=== PATIENT | male | born 1930 | race Caucasian/White ===

== ENCOUNTER 2018-06-07 21:42 | Inpatient (IN) ==
--- NOTE | 2018-06-07 23:28 | ED ---
HPI General Chief Complaint: Neuro Symptoms/Deficit Stated Complaint: Headache Time Seen by Provider: 06/07/18 22:58 Source: patient Mode of arrival: EMS Limitations: no limitations History of Present Illness HPI Narrative: 87-year-old male complains of left arm weakness. Patient states that he was sitting at home this evening. Patient states that he got up and went to the bathroom and started having mild dizziness and nausea. Patient was sitting down after the bathroom and started having transient left arm tingling and weakness. Patient states that the symptoms lasted about a minute and resolved completely and then it happened again second time and resolved completely after 1 minute. Patient denies any numbness tingling or weakness sensation left arm now. Patient states that he has mild aching headache and occasionally burning sensation on the ice at the same time. Patient denies any visual change. Patient denies any facial weakness and numbness. Patient denies any neck pain. Patient denies any chest pain or shortness of breath. Patient denies abdominal pain. Patient denies any focal weakness or numbness of the extremity otherwise been a transient tingling and weakness of the left arm. Patient was been seen by Dr. Wilburn, neurologist, for stability problem and vestibular problem in the past. Patient has history of hypertension, hyperlipidemia. Patient denies history of diabetes. Patient denies history of TIA or CVA. Patient is non-smoker. Patient has history of bleeding ulcer in the past. Patient on aspirin 81 mg daily. Onset (ago): hour(s) Location: left arm History of same: No Severity: mild Quality: weak and tingling Relieving factors: none Exacerbating factors: none Context: sudden onset On Anticoagulants: Yes Associated symptoms: denies other symptoms Treatments Prior to Arrival: none Related Data Allergies Allergy/AdvReac Type Severity Reaction Status Date / Time No Known Allergies Allergy Mild Uncoded 12/13/06 12:01 Review of Systems Except as stated in HPI: all other systems reviewed are negative [facility] Social History Social History Second Hand Smoke Exposure: No Smoking Status: Never smoker How Often Do You Have a Drink Containing Alcohol: 2 to 4 times a month Recent Travel in [facility] within the Last 8 Weeks: No Recent Out of Country Travel within the Last 8 Weeks: No Immunization History Tetanus Immunization: Unsure Hx Influenza Vaccine This Season: No Exam Narrative Exam Narrative: GENERAL: Well-nourished, well-developed patient. SKIN: Focused skin assessment warm/dry. HEAD: Normocephalic. EYES: No scleral icterus. No injection or drainage. Pupils 1 mm equal reactive. NECK: Supple, trachea midline. No JVD or lymphadenopathy. CARDIOVASCULAR: Regular rate and rhythm without murmurs, gallops, or rubs. RESPIRATORY: Breath sounds equal bilaterally. No accessory muscle use. GASTROINTESTINAL: Abdomen soft, non-tender, nondistended. MUSCULOSKELETAL: No cyanosis, or edema. BACK: Nontender without obvious deformity. No CVA tenderness. Neurologic exam: Patient is awake and alert oriented 3. Patient moves all extremity well. No obvious focal neurological deficit. Course Initial Documented Vital Signs Temperature 98.2 F 06/07/18 22:51 Pulse Rate 78 06/07/18 22:51 Respiratory Rate 18 06/07/18 22:51 Blood Pressure 178/94 H 06/07/18 22:51 Pulse Oximetry 96 06/07/18 22:51 Last Documented Vital Signs Temperature 98.2 F 06/07/18 22:51 Pulse Rate 63 06/08/18 00:37 Respiratory Rate 16 06/08/18 00:37 Blood Pressure 160/81 H 06/08/18 00:37 Pulse Oximetry 97 06/08/18 00:37 Medical Decision Making MDM Narrative Medical decision making narrative: 87-year-old male with transient tingling sensation and weakness of the left arm. Lab Data Result diagrams: 06/07/18 23:25 06/07/18 23:25 Lab Results 06/07/18 06/07/18 06/07/18 Range/Units 23:25 23:25 23:25 WBC 4.3 (4.0-11.0) th/mm3 RBC 4.21 L (4.50-5.90) mil/mm3 Hgb 13.5 (13.0-17.0) gm/dL Hct 39.5 (39.0-51.0) % MCV 93.9 (80.0-100.0) fL MCH 32.0 (27.0-34.0) pg MCHC 34.1 (32.0-36.0) % RDW 12.5 (11.6-17.2) % Plt Count 302 (150-450) th/mm3 MPV 7.6 (7.0-11.0) fL Neut % (Auto) 49.8 (16.0-70.0) % Lymph % (Auto) 20.8 (9.0-44.0) % [place] % (Auto) 17.5 H (0.0-8.0) % Eos % (Auto) 10.5 H (0.0-4.0) % Baso % (Auto) 1.4 (0.0-2.0) % Neut # (Auto) 2.1 (1.8-7.7) th/mm3 Lymph # (Auto) 0.9 L (1.0-4.8) th/mm3 [place] # (Auto) 0.7 (0.0-0.9) th/mm3 Eos # (Auto) 0.4 (0.0-0.4) th/mm3 Baso # (Auto) 0.1 (0.0-0.2) th/mm3 WBC Differential . Differential Comment Auto diff final PT 11.1 (9.8-11.6) sec INR 1.1 Ratio APTT 26.0 (24.3-30.1) sec Sodium 138 (136-145) meq/L Potassium 3.7 (3.5-5.1) meq/L Chloride 102 (98-107) meq/L Carbon Dioxide 26.7 (21.0-32.0) meq/L Anion Gap 9 (5-15) meq/L BUN 22 H (7-18) mg/dL Creatinine 1.41 H (0.60-1.30) mg/dL Estimated GFR 48 L (>89) mL/min Random Glucose 98 (74-106) mg/dL Calcium 9.2 (8.5-10.1) mg/dL Total Bilirubin 0.5 (0.2-1.0) mg/dL AST 22 (15-37) U/L ALT 21 (12-78) U/L Alkaline Phosphatase 119 H (45-117) U/L Total Protein 7.6 (6.4-8.2) g/dL Albumin 4.1 (3.4-5.0) g/dL Imaging Data Attestation: I personally reviewed and interpreted this imaging study as follows : Radiologist's impression: Head CT 06/07/18 23:16 CONCLUSION: 1. No acute findings in the brain. Chronic atrophy and white matter hypodensity. . Discharge Plan Discharge Disposition Patient Disposition: 30 Still Patient Discharge Details Diagnosis: Brain TIA Physicians Team ED Provider: Corky Sainz Primary Care Provider: UNKNOWN, Discharge Interventions Interventions: Vital Signs Last Done: 06/08/18 00:37 Status ED Status: With Doctor
[2018-06-07] MEDS ORDERED: Sod Chloride 0.9% Inj 1,000 ML IV.CONT SCH (23:30)
[2018-06-07 23:40] LABS: Baso # (Auto) 0.1 th/mm3 (0.0-0.2); Baso % (Auto) 1.4 % (0.0-2.0); Eos # (Auto) 0.4 th/mm3 (0.0-0.4); Eos % (Auto) 10.5 % (0.0-4.0); Hematocrit 39.5 % (39.0-51.0); Hemoglobin 13.5 gm/dL (13.0-17.0); Lymph # (Auto) 0.9 th/mm3 (1.0-4.8); Lymph % (Auto) 20.8 % (9.0-44.0); Mean Corpuscular HGB Conc 34.1 % (32.0-36.0); Mean Corpuscular Volume 93.9 fL (80.0-100.0); Mean Platelet Volume 7.6 fL (7.0-11.0); Mono # (Auto) 0.7 th/mm3 (0.0-0.9); Mono % (Auto) 17.5 % (0.0-8.0); Neut # (Auto) 2.1 th/mm3 (1.8-7.7); Neut % (Auto) 49.8 % (16.0-70.0); Platelet Count 302 th/mm3 (150-450); Red Blood Count 4.21 mil/mm3 (4.50-5.90); Red Cell Distribution Width 12.5 % (11.6-17.2); White Blood Count 4.3 th/mm3 (4.0-11.0)
[2018-06-07 23:55] LABS: Alanine Aminotransferase 21 U/L (12-78); Albumin 4.1 g/dL (3.4-5.0); Anion Gap 9 meq/L (5-15); Aspartate Aminotransferase 22 U/L (15-37); Blood Urea Nitrogen 22 mg/dL (7-18); Calcium 9.2 mg/dL (8.5-10.1); Carbon Dioxide 26.7 meq/L (21.0-32.0); Chloride 102 meq/L (98-107); Glomerular Filtration Rate 48 mL/min (>89); Glucose,Random 98 mg/dL (74-106); INR 1.1 Ratio; Potassium 3.7 meq/L (3.5-5.1); Prothrombin Time 11.1 sec (9.8-11.6); Sodium 138 meq/L (136-145)
[2018-06-07 23:58] LABS: Alkaline Phosphatase 119 U/L (45-117); Total Protein 7.6 g/dL (6.4-8.2)
--- NOTE | 2018-06-07 23:58 | CT ---
EXAM DATE: 06/07/2018 11:51 PM EDT AGE/SEX: 87 years / Male INDICATIONS: Patient had an episode of dizziness and left arm tingling. CLINICAL DATA: This is the patient's initial encounter. Patient reports that signs and symptoms have been present for 1 day and indicates a pain score of 0/10. MEDICAL/SURGICAL HISTORY: None. None. RADIATION DOSE: 56.35 CTDI (mGy) COMPARISON: [facility], MR BRAIN W AND W/O CONTRAST, 08/02/2015. . TECHNIQUE: CT of the head without contrast. Using automated exposure control and adjustment of the mA and/or kV according to patient size, radiation dose was kept as low as reasonably achievable to ob tain optimal diagnostic quality images. DICOM format image data is available electronically for revi ew and comparison. FINDINGS: Cerebrum: The ventricles and sulci are prominent. Attenuation in the supratentorial white matter. Th david findings are similar in appearance to prior MR in 2014, characteristic of chronic ischemic change .. No evidence of midline shift, mass lesion, hemorrhage or acute infarction. No extraaxial fluid c ollections are seen. Posterior Fossa: The cerebellum and brainstem are intact. Stable scattered areas of ischemic atroph y of the left cerebellar hemisphere. The 4th ventricle is midline. The cerebellopontine angle is unr emarkable. Extracranial: The visualized portion of the orbits is intact. Skull: The calvaria is intact. No evidence of skull fracture. CONCLUSION: 1. No acute findings in the brain. Chronic atrophy and white matter hypodensity. . Electronically signed by: Lance Zimmerman MD 06/07/2018 11:57 PM EDT
[2018-06-08] MEDS ORDERED: Acetaminophen 325 MG Tablet PO PRN (02:32)
[2018-06-08] MEDS ORDERED: Bisacodyl 10 MG Supp RECTAL PRN (02:32)
[2018-06-08] MEDS ORDERED: Temazepam 15 MG Capsule PO PRN (02:32)
[2018-06-08] MEDS: Sod Chloride 0.9% Inj 1,000 ML IV.CONT SCH ×2 (02:35→18:13)
--- NOTE | 2018-06-08 03:12 | P.HPIM ---
History of Present Illness Primary Care Physician: UNKNOWN History of Present Illness: This is an 87-year-old male with a PMH of HTN, Hyperlipidemia and h/o GI Bleed who presented to the ER w/ complaints fo LUE numbness/tingling and c/o dizziness starting earlier this evening. States symptoms began acutely after walking out of the bathroom, lasted approx 1-2min then resolved spontaneously. States he had a second episode of similar symptoms and decided to come to the ER. No slurred speech, facial droop or weakness. All symptoms now resolved. Takes ASA 81mg qd at home. Previously following w/ Dr. Wilburn for dizziness in the past. On arrival, BP 178/94, HR 78, O2 sat 96% on RA, Afebrile. CBC unremarkable. INR 1.1. Chemistry unremarkable except for creatinine 1.41, no previous labs for comparison. CT Head with no acute findings. - Diagnosis (1) TIA (transient ischemic attack) (2) Renal insufficiency (3) HTN (hypertension) Inpatient Certification: I certify that the inpatient services were ordered in accordance with Medicare regulations governing the order. This includes certification that hospital inpatient services are reasonable and necessary and in the case of services not specified as inpatient-only under 42 CFR 419.22(n), that they are appropriately provided as inpatient services in accordance to with the 2-midnight benchmark under 43 CFR 412.3(e) Estimated Total Length of Stay (Days): 2 Plans for Post Hospital Care: Not yet determined Review of Systems PAST FAMILY HISTORY: Reviewed. No h/o DM or CAD All other systems reviewed negative except as stated in HPI PMFSH - History History Provided By: Patient - Tobacco History Second Hand Smoke Exposure: No Smoking Status: Never smoker - Alcohol History How Often Do You Have a Drink Containing Alcohol: 2 to 4 times a month - Travel History Recent Travel in the [place] Within the Last 8 Weeks: No Recent Travel Out of the Country Within the Last 8 Weeks: No - Immunization History Tetanus Immunization: Unsure Hx Influenza Vaccine This Season: No Medications and Allergies Active Medications: Active Medications Acetaminophen (Tylenol) 650 mg PO Q4H PRN PRN Reason: Temp > 100.4 Al Hydroxide/Mg Hydroxide (Milk Of Magnesia Liq) 30 ml PO Q12H PRN PRN Reason: Mild Constipation Aspirin (Ecotrin) 81 mg PO DAILY ALICE Bisacodyl (Dulcolax Supp) 10 mg RECTAL DAILY PRN PRN Reason: SEVERE CONSITIPATION Sodium Chloride (Ns Inj) 1,000 mls @ 70 mls/hr IV.CONT .[id number] [facility] Stop: 06/08/18 13:47 Last Admin: 06/08/18 00:16 Dose: 70 mls/hr Sodium Chloride (Ns Inj) 1,000 mls @ 100 mls/hr IV.CONT .Q10H [facility] Last Admin: 06/08/18 02:35 Dose: Not Given Lactulose (Lactulose Liq) 30 ml PO DAILY PRN PRN Reason: SEVERE CONSITIPATION Ondansetron HCl (Zofran Inj) 4 mg IV.PUSH Q6H PRN PRN Reason: NAUSEA OR VOMITING Pravastatin Sodium (Pravachol) 40 mg PO DAILY [facility] Senna/Docusate Sodium (Elena-Colace) 1 tab PO BID [facility] Sennosides (Senokot) 17.2 mg PO Q12H PRN PRN Reason: Moderate Constipation Temazepam (Restoril) 15 mg PO HS PRN PRN Reason: INSOMNIA Allergies Allergy/AdvReac Type Severity Reaction Status Date / Time No Known Allergies Allergy Mild Uncoded 12/13/06 12:01 Exam Vital signs: Vital Signs 06/07/18 22:51 06/07/18 23:00 06/08/18 00:22 Temperature 98.2 F Pulse Rate 78 68 Respiratory Rate 18 18 Blood Pressure 178/94 H 159/79 H Pulse Oximetry 96 98 98 06/08/18 00:37 Temperature Pulse Rate 63 Respiratory Rate 16 Blood Pressure 160/81 H Pulse Oximetry 97 Intake & Output 06/07/18 06/07/18 06/08/18 06:59 18:59 06:59 Weight 95 kg Narrative: PE: GENERAL: Very pleasant elderly white male in no acute distress. HEENT: PERRLA, EOMI. No scleral icterus or conjunctival pallor. No lid lag or facial droop. CARDIOVASCULAR: Regular rate and rhythm. No obvious murmurs to auscultation. No chest tenderness to palpation. RESPIRATORY: No obvious rhonchi or wheezing. Clear to auscultation. Breath sounds equal bilaterally. GASTROINTESTINAL: Abdomen soft, non-tender, nondistended. BS normal. MUSCULOSKELETAL: Extremities without clubbing, cyanosis, or edema. No obvious deformities. NEUROLOGICAL: Awake, alert and oriented x4. No focal neurologic deficits. Moving both upper and lower extremities spontaneously. Results - Labs CBC & Chem 7: 06/07/18 23:25 06/07/18 23:25 Labs: Short CBC 06/07/18 Range/Units 23:25 WBC 4.3 (4.0-11.0) th/mm3 Hgb 13.5 (13.0-17.0) gm/dL Hct 39.5 (39.0-51.0) % Plt Count 302 (150-450) th/mm3 BMP 06/07/18 23:25 Sodium 138 Potassium 3.7 Chloride 102 Carbon Dioxide 26.7 BUN 22 H Creatinine 1.41 H Calcium 9.2 Liver Function 06/07/18 Range/Units 23:25 Total Bilirubin 0.5 (0.2-1.0) mg/dL AST 22 (15-37) U/L ALT 21 (12-78) U/L Alkaline Phosphatase 119 H (45-117) U/L Albumin 4.1 (3.4-5.0) g/dL - Imaging Impressions Head CT 06/07/18 23:16 CONCLUSION: 1. No acute findings in the brain. Chronic atrophy and white matter hypodensity. . Caprini VTE Risk Assessment Caprini VTE Risk Assessment: No/Low Risk (score <= 1) Caprini Risk Assessment Model: Point Value = 1 Point Value = 2 Point Value = 3 Point Value = 5 Age 41-60 Minor surgery BMI > 25 kg/m2 Swollen legs Varicose veins or History of unexplained or recurrent spontaneous Oral contraceptives or hormone replacement Sepsis (< 1 month) Serious lung disease, including pneumonia (< 1 month) Abnormal pulmonary function Acute myocardial infarction Congestive heart failure (< 1 month) History of inflammatory bowel disease Medical patient at bed rest Age 61-74 Arthroscopic surgery Major open surgery (> 45 min) Laparoscopic surgery (> 45 min) Malignancy Confined to bed (> 72 hours) Immobilizing plaster cast Central venous access Age >= 75 History of VTE Family history of VTE Factor V Leiden Prothrombin [id number] Lupus anticoagulant Anticardiolipin antibodies Elevated serum homocysteine Heparin-induced thrombocytopenia Other congenital or acquired thrombophilia Stroke (< 1 month) Elective arthroplasty Hip, pelvis, or leg fracture Acute spinal cord injury (< 1 month) Prophylaxis Regimen: Total Risk Factor Score Risk Level Prophylaxis Regimen 0-1 Low Early ambulation 2 Moderate Order ONE of the following: *Sequential Compression Device (SCD) *Heparin 5000 units SQ BID 3-4 Higher Order ONE of the following medications: *Heparin 5000 units SQ TID *Enoxaparin/Lovenox 40 mg SQ daily (WT < 150 kg, CrCl > 30 mL/min) *Enoxaparin/Lovenox 30 mg SQ daily (WT < 150 kg, CrCl > 10-29 mL/min) *Enoxaparin/Lovenox 30 mg SQ BID (WT < 150 kg, CrCl > 30 mL/min) AND/OR *Sequential Compression Device (SCD) 5 or more Highest Order ONE of the following medications: *Heparin 5000 units SQ TID (Preferred with Epidurals) *Enoxaparin/Lovenox 40 mg SQ daily (WT < 150 kg, CrCl > 30 mL/min) *Enoxaparin/Lovenox 30 mg SQ daily (WT < 150 kg, CrCl > 10-29 mL/min) *Enoxaparin/Lovenox 30 mg SQ BID (WT < 150 kg, CrCl > 30 mL/min) AND *Sequential Compression Device (SCD) Assessment and Plan - Assessment (1) TIA (transient ischemic attack) Code(s): G45.9 - Transient cerebral ischemic attack, unspecified Status: Acute (2) Renal insufficiency Code(s): N28.9 - Disorder of kidney and ureter, unspecified Status: Acute (3) HTN (hypertension) Code(s): I10 - Essential (primary) hypertension Status: Acute - Plan A/P: 1. TIA: acute onset LUE numbness/tingling lasting approx 1-2 min w/ recurrence x2, symptoms now resolved. CT Head w/ no acute findings. On ASA 81mg qd, will continue. Check MRI/MRA to eval for possible CVA, Neuro Checks. Consult Dr. Wilburn for further evaluation/recommendations. 2. HTN: BP 170's, will allow for permissive HTN, monitor BP, antihypertensives as needed for BP >220 3. Renal Insufficiency: Creatinine 1.41, no previous labs for comparison, IVF for hydration, check U/a to eval for possible UTI, monitor I/O, repeat labs in am. 4. DVT Prophylaxis: SCD/Teds 5. Social work for d/c planning as needed 6. Case discussed w/ ER physician at length, labs/records/imaging reviewed by me.
--- NOTE | 2018-06-08 08:15 | MR ---
EXAM DATE: 06/08/2018 8:05 AM EDT AGE/SEX: 87 years / Male INDICATIONS: Dizziness. Left arm tingling. CLINICAL DATA: This is the patient's initial encounter. Patient reports that signs and symptoms have been present for 1 day and indicates a pain score of 0/10. MEDICAL/SURGICAL HISTORY: Carcinoma, skin cancer. Hypertension. Appendectomy. Tonsillectomy. COMPARISON: [facility] [place], MRA HEAD W/O CONTRAST, 06/08/2018. [facility] [place], CT HEAD W/O CONTRAST, 06/07/2018. . TECHNIQUE: Multiplanar, multisequence examination of the brain was performed without contrast. FINDINGS: Cerebrum: The ventricles are normal for age. No evidence of midline shift, mass lesion, hemorrhage or acute infarction. No extraaxial fluid collections are seen. The pituitary gland and suprasellar cistern are normal in configuration. White Matter: Scattered bilateral periventricular white matter hyperintensities.. Posterior Fossa: The cerebellum and brainstem are intact. The 4th ventricle is midline. The cerebel lopontine angle is unremarkable. The cerebellar tonsils are normal in position. Diffusion Imaging: No focal areas of restricted diffusion are seen. No evidence of acute infarction . Extracranial: The visualized portions of the orbits and paranasal sinuses are unremarkable. CONCLUSION: 1. Age-related white matter changes. No acute abnormality. Electronically signed by: Linda Cook MD 06/08/2018 8:13 AM EDT
--- NOTE | 2018-06-08 08:15 | MR ---
EXAM DATE: 06/08/2018 8:04 AM EDT AGE/SEX: 87 years / Male INDICATIONS: Dizziness. Left arm tingling. CLINICAL DATA: This is the patient's initial encounter. Patient reports that signs and symptoms have been present for 2 days and indicates a pain score of 0/10. MEDICAL/SURGICAL HISTORY: Hypertension. Carcinoma, skin cancer. Appendectomy. Tonsillectomy. COMPARISON: [facility] [place], MR HEAD W/O CONTRAST, 06/08/2018. [facility] [place], CT HEAD W/O CONTRAST, 06/07/2018. . TECHNIQUE: 3D [id number] MRA was performed. Source images, multiplanar STS MIP, and 3D volum e MIP reconstructions were reviewed. FINDINGS: There is excellent visualization of the major intracranial arteries out to the second-order branch ve ssels. There is no evidence for aneurysm, vessel truncation or stenosis, and no evidence for vascula r malformation. CONCLUSION: 1. Negative MRA [place] ([place]) non contrast. Electronically signed by: Linda Cook MD 06/08/2018 8:14 AM EDT
--- NOTE | 2018-06-08 08:47 | ECG ---
Date Performed: 06/07/2018 Time Performed: 22:48:18 PTAGE: 87 years EKG: Sinus rhythm MODERATE INTRAVENTRICULAR CONDUCTION DELAY BORDERLINE ECG Since the PREVIOUS TRACING , no significant change noted DOCTOR: Anita Duenas Interpretating Date/Time 06/08/2018 08:46:04
[2018-06-08] MEDS: Senna/Docusate Sodium 8.6/50 MG Tablet PO SCH ×2 (09:32→21:55)
--- NOTE | 2018-06-08 10:46 | MB ---
cc: Alley Garcia MD DATE: 06/08/2018 REASON FOR CONSULTATION: Transient ischemic attack. HISTORY OF PRESENT ILLNESS: Mr. Mueller is an 87-year-old gentleman with a history of hypertension, hyperlipidemia, GI bleed in the mid 90s, who comes in because of left upper extremity numbness, tingling, and dizziness. He was in his usual state of health in the evening, when he decided to get up off the couch to go and take his medications, when he started to feel dizzy, walked in the bathroom, did urinate and then went back into I guess it was his family room, sat down and the symptoms restarted. The arm felt tingly. He had trouble grasping the cup of water and decided to come to the emergency room for evaluation. 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 He had vestibular rehab, did not feel like that. He denied any facial droopiness or slurring. He does take baby aspirin daily. He denies any weakness, numbness, tingling currently. No chest pain or shortness of breath. PAST MEDICAL HISTORY: As stated. ALLERGIES TO MEDICINE: NONE REPORTED. MEDICATIONS: Please refer to his MAR, but he does take at home, a baby aspirin. SOCIAL HISTORY: He does not smoke, never did. Drinks maybe 2-4 times a month. FAMILY HISTORY: Noncontributory at this point. PHYSICAL EXAMINATION: VITAL SIGNS: Temperature 97.1, pulse 67, respiratory rate 16, blood pressure 163/80, saturating at 97% on room air. NECK: Supple. HEART: Regular. NEUROLOGIC: He is awake and alert. He is oriented, fluent. Pupils reactive. Visual no full. Face symmetrical. Tongue midline. Motor: No apparent weakness. No drift or leg lag. Cerebellar testing normal. DTRs are 2+. Toes downgoing. Gait deferred to PT, but he has been up and to the bathroom on his own. IMAGING STUDIES: MRI brain did not show anything acute. MRA [place] was unremarkable as well. LABORATORY DATA: Creatinine 1.41, GFR 48, alkaline phosphatase 119. CBC is really unremarkable. Coag panel unremarkable. IMPRESSION AND RECOMMENDATIONS: Transient ischemic attack-like event in an 87-year-old patient with a history of hypertension, hyperlipidemia. Recommend stopping baby aspirin and we will change him to clopidogrel 75 mg daily. Check a lipid panel, carotid ultrasound and the 2D echo. Get him out of bed with physical therapy. Normalize his blood pressure. Maintain telemetry. He may need an outpatient Holter. PT screening. Heparin subcutaneous and SCDs for DVT prevention. He claims he has a history of possible rheumatoid arthritis. He was told not to take Pravachol. I did order a lipid panel. We will see what that shows, and if the patient does not want to take it, he can certainly refuse. He has been taken Gemfibrozil in the past. Continue current recommendations. Hopefully, if he is stable and workup is negative, discharge planning in the next 24 hours. MD JEFF Arauz/GERRY , 10:24 AM , 10:31 AM
[2018-06-08 11:07] LABS: Bacteria,Urine Rare /hpf; Bilirubin,Urine Negative (Negative); Clarity,Urine Clear (Clear); Color,Urine Straw (Yellw/Straw); Glucose,Urine (UA) Negative (Negative); Leukocyte Esterase,Urine Negative (Negative); Nitrite,Urine Negative (Negative); Specific Gravity,Urine 1.008 (1.002-1.035); Squamous Epithelial Cell,Urine <1 /hpf (0-5)
--- NOTE | 2018-06-08 11:24 | P.PNIM ---
Subjective Interval history: Pt seen and examined this morning. He is doing well, denies any neurologic deficits. He does not have numbness or tingling in his left arm. He is moving all issues. He has no fever or chills, no shortness of breath. Physical Exam Vital signs: Vital Signs 06/07/18 22:51 06/07/18 23:00 06/08/18 00:22 Temperature 98.2 F Pulse Rate 78 68 Respiratory Rate 18 18 Blood Pressure 178/94 H 159/79 H Pulse Oximetry 96 98 98 06/08/18 00:37 06/08/18 03:15 06/08/18 03:33 Temperature 97.0 F L Pulse Rate 63 71 Respiratory Rate 16 20 16 Blood Pressure 160/81 H 165/90 H Pulse Oximetry 97 95 06/08/18 08:00 Temperature 97.1 F L Pulse Rate 67 Respiratory Rate 16 Blood Pressure 163/80 H Pulse Oximetry 97 Intake & Output 06/07/18 06/08/18 06/08/18 18:59 06:59 18:59 Intake Total 220 / 220 Output Total 300 / 300 400 / 400 Balance -80 / -80 -400 / -400 Weight 95 kg Intake: Oral 220 / 220 Output: Urine 300 / 300 400 / 400 Other: Date of Last Bowel Movement 05/07/18 Narrative: GENERAL: Very pleasant elderly white male in no acute distress. HEENT: PERRLA, EOMI. No scleral icterus or conjunctival pallor. No lid lag or facial droop. CARDIOVASCULAR: Regular rate and rhythm. No obvious murmurs to auscultation. No chest tenderness to palpation. RESPIRATORY: No obvious rhonchi or wheezing. Clear to auscultation. Breath sounds equal bilaterally. GASTROINTESTINAL: Abdomen soft, non-tender, nondistended. BS normal. MUSCULOSKELETAL: Extremities without clubbing, cyanosis, or edema. No obvious deformities. NEUROLOGICAL: Awake, alert and oriented x4. No focal neurologic deficits. Moving both upper and lower extremities spontaneously. Results - Labs CBC & Chem 7: 06/07/18 23:25 06/08/18 12:54 Laboratory Results - last 24 hr 06/07/18 06/07/18 06/07/18 23:25 23:25 23:25 WBC 4.3 RBC 4.21 L Hgb 13.5 Hct 39.5 MCV 93.9 MCH 32.0 MCHC 34.1 RDW 12.5 Plt Count 302 MPV 7.6 Neut % (Auto) 49.8 Lymph % (Auto) 20.8 [place] % (Auto) 17.5 H Eos % (Auto) 10.5 H Baso % (Auto) 1.4 Neut # (Auto) 2.1 Lymph # (Auto) 0.9 L [place] # (Auto) 0.7 Eos # (Auto) 0.4 Baso # (Auto) 0.1 WBC Differential . Differential Comment Auto diff final PT 11.1 INR 1.1 APTT 26.0 Sodium 138 Potassium 3.7 Chloride 102 Carbon Dioxide 26.7 Anion Gap 9 BUN 22 H Creatinine 1.41 H Estimated GFR 48 L Random Glucose 98 Calcium 9.2 Total Bilirubin 0.5 AST 22 ALT 21 Alkaline Phosphatase 119 H Total Protein 7.6 Albumin 4.1 Urine Color Urine Clarity Urine pH Ur Specific [place] Urine Protein Urine Glucose (UA) Urine Ketones Urine Occult Blood Urine Nitrate Urine Bilirubin Urine Urobilinogen Ur Leukocyte Esterase Urine WBC Ur Squamous Epith Cells Urine Bacteria Micro UA Comment Urine Culture Comments 06/08/18 10:53 WBC RBC Hgb Hct MCV MCH MCHC RDW Plt Count MPV Neut % (Auto) Lymph % (Auto) [place] % (Auto) Eos % (Auto) Baso % (Auto) Neut # (Auto) Lymph # (Auto) [place] # (Auto) Eos # (Auto) Baso # (Auto) WBC Differential Differential Comment PT INR APTT Sodium Potassium Chloride Carbon Dioxide Anion Gap BUN Creatinine Estimated GFR Random Glucose Calcium Total Bilirubin AST ALT Alkaline Phosphatase Total Protein Albumin Urine Color Straw Urine Clarity Clear Urine pH 6.0 Ur Specific [place] 1.008 Urine Protein Negative Urine Glucose (UA) Negative Urine Ketones Negative Urine Occult Blood Negative Urine Nitrate Negative Urine Bilirubin Negative Urine Urobilinogen Less than 2 Ur Leukocyte Esterase Negative Urine WBC Less than 1 Ur Squamous Epith Cells <1 Urine Bacteria Rare H Micro UA Comment Culture not ind Urine Culture Comments Culture not ind - Imaging Impressions Head CT 06/07/18 23:16 CONCLUSION: 1. No acute findings in the brain. Chronic atrophy and white matter hypodensity. . Carotid Doppler Study 06/08/18 00:00 CONCLUSION: 1. Right Internal Carotid Artery: No significant stenosis. 2. Left Internal Carotid Artery: No significant stenosis. Head MRI 06/08/18 00:00 CONCLUSION: 1. Age-related white matter changes. No acute abnormality. Head MRA 06/08/18 00:00 CONCLUSION: 1. Negative MRA Cow ([place] [facility] [place]) non contrast. Assessment and Plan - Assessment (1) TIA (transient ischemic attack) Code(s): G45.9 - Transient cerebral ischemic attack, unspecified Status: Acute (2) Renal insufficiency Code(s): N28.9 - Disorder of kidney and ureter, unspecified Status: Acute (3) HTN (hypertension) Code(s): I10 - Essential (primary) hypertension Status: Acute - Plan A/P: 1. TIA: acute onset LUE numbness/tingling lasting approx 1-2 min w/ recurrence x2, symptoms now resolved. CT Head w/ no acute findings. Neurology on board -Start Plavix 75mg daily Carotid ultrasound shows no significant atherosclerosis of bilateral carotid arteries 2D echo result pending Check lipid panel -patient on a fenofibrate, was told by his PCP not to take pravastatin due to rheumatoid arthritis MRI/MRA negative for acute abnormality Continue neuro Checks PT to assist with ambulation and therapeutic exercises 2. HTN: BP 170's, continue permissive HTN for 24 hours, monitor BP, antihypertensives as needed for BP >220 3. Renal Insufficiency: Creatinine 1.41, no previous labs for comparison IVF for hydration Urinalysis negative for UTI Continue to monitor I/O Repeat labs in am 4. DVT Prophylaxis: SCD/Teds, heparin subq 5. Social work for d/c planning as needed He will need an outpatient Holter monitor
--- NOTE | 2018-06-08 11:54 | US ---
EXAM DATE: 06/08/2018 11:48 AM EDT AGE/SEX: 87 years / Male INDICATIONS: Transient ischemic attack. CLINICAL DATA: This is the patient's initial encounter. Patient reports that signs and symptoms have been present for 1 day and indicates a pain score of 0/10. MEDICAL/SURGICAL HISTORY: . TIA. None. COMPARISON: No prior exams available for comparison. VELOCITY PARAMETERS: ICA/CCA Ratio: Right 1.1 , Left 1.1 ICA: Right 53.7 cm/sec, Left 63.6 cm/sec CCA: Right 50.4 cm/sec, Left 55.9 cm/sec ECA: Right 52.6 cm/sec, Left 58.1 cm/sec Vertebral: Right 38.4 cm/sec antegrade, Left 40.9 cm/sec antegrade FINDINGS: Right Carotid: Mild arteriosclerotic plaque is visualized.The waveforms are within normal limits. Left Carotid: Mild arteriosclerotic plaque is visualized. The waveforms are within normal limits. Other: None. CONCLUSION: 1. Right Internal Carotid Artery: No significant stenosis. 2. Left Internal Carotid Artery: No significant stenosis. Electronically signed by: Linda Cook MD 06/08/2018 11:53 AM EDT
[2018-06-08 13:58] LABS: Calcium 8.7 mg/dL (8.5-10.1); Carbon Dioxide 24.1 meq/L (21.0-32.0); Potassium 4.2 meq/L (3.5-5.1)
[2018-06-08 14:08] LABS: Chol/HDL Ratio 3.84 Ratio; HDL Cholesterol 58.8 mg/dL (40.0-60.0); Thyroid Stimulating Hormone 3.24 uIU/mL (0.358-3.740)
[2018-06-09] MEDS: Sod Chloride 0.9% Inj 1,000 ML IV.CONT SCH ×2 (02:05→12:53)
[2018-06-09 05:10] LABS: Eos # (Auto) 0.4 th/mm3 (0.0-0.4); Eos % (Auto) 8.8 % (0.0-4.0); Hematocrit 37.5 % (39.0-51.0); Lymph # (Auto) 0.7 th/mm3 (1.0-4.8); Lymph % (Auto) 14.7 % (9.0-44.0); Mean Corpuscular HGB Conc 34.6 % (32.0-36.0); Mean Corpuscular Hemoglobin 32.3 pg (27.0-34.0); Mean Corpuscular Volume 93.3 fL (80.0-100.0); Mean Platelet Volume 7.2 fL (7.0-11.0); Mono # (Auto) 0.6 th/mm3 (0.0-0.9); Neut % (Auto) 62.5 % (16.0-70.0); Platelet Count 276 th/mm3 (150-450); Red Blood Count 4.01 mil/mm3 (4.50-5.90); Red Cell Distribution Width 12.7 % (11.6-17.2); White Blood Count 4.9 th/mm3 (4.0-11.0)
[2018-06-09 05:50] LABS: Alanine Aminotransferase 17 U/L (12-78); Albumin 3.4 g/dL (3.4-5.0); Alkaline Phosphatase 92 U/L (45-117); Anion Gap 9 meq/L (5-15); Aspartate Aminotransferase 15 U/L (15-37); Blood Urea Nitrogen 18 mg/dL (7-18); Calcium 8.5 mg/dL (8.5-10.1); Carbon Dioxide 24.6 meq/L (21.0-32.0); Chloride 110 meq/L (98-107); Glomerular Filtration Rate 64 mL/min (>89); Glucose,Random 97 mg/dL (74-106); Sodium 144 meq/L (136-145); Total Protein 6.4 g/dL (6.4-8.2)
[2018-06-09] MEDS: Senna/Docusate Sodium 8.6/50 MG Tablet PO SCH (08:08)
--- NOTE | 2018-06-09 11:49 | P.DS ---
Date of admission: 06/08/18 02:33 Primary care physician: UNKNOWN Brief History from admission: This is an 87-year-old male with a PMH of HTN, Hyperlipidemia and h/o GI Bleed who presented to the ER w/ complaints fo LUE numbness/tingling and c/o dizziness starting earlier this evening. States symptoms began acutely after walking out of the bathroom, lasted approx 1-2min then resolved spontaneously. States he had a second episode of similar symptoms and decided to come to the ER. No slurred speech, facial droop or weakness. All symptoms now resolved. Takes ASA 81mg qd at home. Previously following w/ Dr. Wilburn for dizziness in the past. On arrival, BP 178/94, HR 78, O2 sat 96% on RA, Afebrile. CBC unremarkable. INR 1.1. Chemistry unremarkable except for creatinine 1.41, no previous labs for comparison. CT Head with no acute findings. DS: Medications - Discharge Medications Prescriptions: atorvastatin [Lipitor] 40 mg PO HS #90 tab clopidogrel [Plavix] 75 mg PO DAILY #90 tab DS: Summary Hospital Course: This is an 87-year-old male with a PMH of HTN, Hyperlipidemia and h/o GI Bleed who presented to the ER w/ complaints fo LUE numbness/tingling and c/o dizziness starting earlier this evening. Patient takes Aspirin 81mg Qday. Patient was evaluated by Neurology who recommended switching Aspirin to Plavix 75mg Qday. MRI head, MRA head, carotid Doppler ultrasound were all unremarkable for any acute findings. Patient also underwent echo 2D which showed ejection fraction 45-50% and no other acute findings. His lipid panel shows triglycerides 107, total cholesterol 226, LDL 146 and HDL 58.8. Patient has taken Lipitor before we will start patient on Lipitor 40 mg nightly. He was advised not to continue gemfibrozil. During this admission, patient also had acute kidney injury with creatinine 1.41. His creatinine improved to 1.09. Patient remains hemodynamically stable. Physical therapy recommended no additional physical therapy. Patient was subsequently discharged home. - Time Spent with Patient Total time spent providing and/or coordinating discharge services: Less than 30 minutes - Quality: VTE Deep Vein Thrombosis/Pulmonary Embolism Present on Admission: No Exam Vital signs: Vital Signs 06/08/18 12:00 06/08/18 16:00 06/08/18 20:00 Temperature 97.4 F L 97.5 F L 98.2 F Pulse Rate 62 65 64 Respiratory Rate 18 16 18 Blood Pressure 156/84 H 149/87 H 127/71 Pulse Oximetry 97 95 95 06/09/18 00:00 06/09/18 04:00 06/09/18 08:00 Temperature 98.6 F 97.5 F L 97.1 F L Pulse Rate 71 67 66 Respiratory Rate 18 18 18 Blood Pressure 132/68 169/91 H 161/81 H Pulse Oximetry 96 96 96 06/09/18 09:19 Temperature Pulse Rate 68 Respiratory Rate Blood Pressure Pulse Oximetry Intake & Output 06/08/18 06/09/18 06/09/18 18:59 06:59 18:59 Intake Total 1000 / 1000 Output Total 1000 / 1000 1675 / 1675 Balance -1000 / -1000 -675 / -675 Weight 95 kg Intake: IV 1000 / 1000 NS Inj 1,000 ML @ 100 mls/hr IV 1000 / 1000 .CONT .Q10H ALICE Rx#:[id number] Output: Urine 1000 / 1000 1675 / 1675 Other: # Voids 2 Date of Last Bowel Movement 05/07/18 06/07/48 # Bowel Movements 1 Results Procedures completed during hospitalization: None. Labs on day of discharge: Labs from last 24 hours 06/09/18 06/09/18 06/08/18 04:56 04:56 12:54 WBC 4.9 RBC 4.01 L Hgb 13.0 Hct 37.5 L MCV 93.3 MCH 32.3 MCHC 34.6 RDW 12.7 Plt Count 276 MPV 7.2 Neut % (Auto) 62.5 Lymph % (Auto) 14.7 [place] % (Auto) 13.0 H Eos % (Auto) 8.8 H Baso % (Auto) 1.0 Neut # (Auto) 3.0 Lymph # (Auto) 0.7 L [place] # (Auto) 0.6 Eos # (Auto) 0.4 Baso # (Auto) 0.0 WBC Differential . Differential Comment Auto diff final Sodium 144 139 Potassium 4.0 4.2 Chloride 110 H 106 Carbon Dioxide 24.6 24.1 Anion Gap 9 9 BUN 18 20 H Creatinine 1.09 1.13 Estimated GFR 64 L 62 L Random Glucose 97 138 H Calcium 8.5 8.7 Total Bilirubin 0.5 AST 15 ALT 17 Alkaline Phosphatase 92 Total Protein 6.4 D Albumin 3.4 D Triglycerides 107 Cholesterol 226 H LDL Cholesterol, Calc 146 H HDL Cholesterol 58.8 Cholesterol/HDL Ratio 3.84 TSH 3.240 - Impressions ITS Impressions Head CT 06/07/18 23:16 CONCLUSION: 1. No acute findings in the brain. Chronic atrophy and white matter hypodensity. . Carotid Doppler Study 06/08/18 00:00 CONCLUSION: 1. Right Internal Carotid Artery: No significant stenosis. 2. Left Internal Carotid Artery: No significant stenosis. Head MRI 06/08/18 00:00 CONCLUSION: 1. Age-related white matter changes. No acute abnormality. Head MRA 06/08/18 00:00 CONCLUSION: 1. Negative MRA Cow ([place] [facility] [place]) non contrast. Discharge Plan - Discharge Disposition Patient Disposition: 01 Discharge Home - Discharge Condition Condition: Good - Discharge Order Discharge Orders: Discharge Order (Routine); Ordered 06/09/18 Ordered By: Monet Garcia - Discharge Details Anticipated Discharge Date: 06/09/18 - Physicians Team Primary Care Provider: UNKNOWN, Attending Provider: Monet Garcia
--- NOTE | 2018-06-09 14:20 | ECHRPT ---
Indication: CVA CONCLUSIONS The left ventricular systolic function is mildly reduced with an estimated ejection fraction in the range of 45- 50%. Normal left ventricular size. Mild concentric left ventricular hypertrophy. Mitral annular calcification is present. Calcification of the anterior mitral valve leaflet. [id number] mitral valve regurgitation. Moderate aortic valve regurgitation. There is trace tricuspid valve regurgitation. The estimated pulmonary arterial pressure is 28.7 mmHg. Trivial pulmonary valve regurgitation. BP: / HR: Rhythm: Sinus MEASUREMENTS (Male / Female) Normal Values Technical Quality:Fair 2D ECHO LV Diastolic Diameter PLAX 4.3 cm 4.2 - 5.9 / 3.9 - 5.3 cm LV Systolic Diameter PLAX 3.2 cm IVS Diastolic Thickness 1.2 cm 0.6 - 1.0 / 0.6 - 0.9 cm LVPW Diastolic Thickness 0.9 cm 0.6 - 1.0 / 0.6 - 0.9 cm LV Relative Wall Thickness 0.5 RV Internal Dim ED PLAX 2.2 cm LVOT Diameter 2.0 cm LA Systolic Diameter LX 3.0 cm 3.0 - 4.0 / 2.7 - 3.8 cm M-MODE Aortic Root Diameter MM 2.8 cm LA Systolic Diameter MM 3.4 cm LA Ao Ratio MM 1.2 AV Cusp Separation MM 1.8 cm DOPPLER AV Peak Velocity 119.0 cm/s AV Peak Gradient 5.7 mmHg AI Peak Velocity 425.0 cm/s AI Peak Gradient 72.3 mmHg AI Pressure Half Time 279.0 ms LVOT Peak Velocity 78.5 cm/s LVOT Peak Gradient 2.5 mmHg AV Area Cont Eq pk 2.1 cm MV Area PHT 1.9 cm Mitral E Point Velocity 56.8 cm/s Mitral A Point Velocity 77.0 cm/s Mitral E to A Ratio 0.7 LV E' Lateral Velocity 10.2 cm/s Mitral E to LV E' Lateral Ratio 5.6 LV E' Septal Velocity 5.3 cm/s Mitral E to LV E' Septal Ratio 10.8 TR Peak Velocity 216.0 cm/s TR Peak Gradient 18.7 mmHg Right Atrial Pressure 10.0 mmHg Pulmonary Artery Systolic Pressu 28.7 mmHg Right Ventricular Systolic Press 28.7 mmHg FINDINGS LEFT VENTRICLE The left ventricular systolic function is mildly reduced with an estimated ejection fraction in the range of 45- 50%. Normal left ventricular size. Mild concentric left ventricular hypertrophy. RIGHT VENTRICLE Normal right ventricular size and systolic function. LEFT ATRIUM The left atrial size is normal. RIGHT ATRIUM The right atrial size is normal. ATRIAL SEPTUM Normal atrial septal thickness without atrial level shunting by limited color doppler interrogation. AORTA The aortic root and proximal ascending aorta are normal in size on limited imaging. MITRAL VALVE Mitral annular calcification is present. Calcification of the anterior mitral valve leaflet. [id number] mitral valve regurgitation. AORTIC VALVE Trileaflet aortic valve. Moderate aortic valve regurgitation. TRICUSPID VALVE Structurally normal tricuspid valve. There is trace tricuspid valve regurgitation. The estimated pulmonary arterial pressure is 28.7 mmHg. PULMONARY VALVE Trivial pulmonary valve regurgitation. VESSELS The inferior vena cava is normal in size. PERICARDIUM No pericardial effusion. Subhash Mcfarland MD, FACC, FSCAI (Electronically Signed) Final Date:09 June 2018 14:19
== END 2018-06-09 13:31 | disposition home or self-care (01) ==
LOC: NEPE 21:42 → NEDA 06-08 02:33 → N06 06-08 03:11
PROVIDERS: ADMIT Hospitalist; ATTEND Hospitalist